=== PATIENT | male | born 1945 | race Caucasian/White ===

== ENCOUNTER 2017-12-16 12:04 | Emergency (ER) | payer MEDICARE, OTHER, SELFPAY ==
[2017-12-16 12:17] VITALS: BP 169/97; PULSE 57; RESP 16; TEMP 36.3; O2SAT 100
--- NOTE | 2017-12-16 12:18 | DI.RAD.S_ITS ---
PROCEDURE: XR SHOULDER RT MIN 2V INDICATIONS: fall TECHNIQUE: 2 views of the shoulder were acquired. COMPARISON: None. FINDINGS: Bones: Slight irregular is noted along the lateral cortex of the humeral head. No suspicious bony lesions. Visualized ribs appear intact. Moderate acromioclavicular degenerative narrowing. Soft tissues: No suspicious soft tissue calcifications. IMPRESSION: Slight cortical irregularity along the lateral humeral head. Chronicity is indeterminate. Recommend correlation of point tenderness. If concern for fracture persists, further imaging with CT/MR may be obtained. Dictated by: Tatianna Dickens M.D. on 12/16/2017 at 12:39 Approved by: Tatianna Dickens M.D. on 12/16/2017 at 12:41
--- NOTE | 2017-12-16 12:24 | ED.FALL ---
HPI - Fall <CLAUDIA Mohan - Last Filed: 12/16/17 22:23> General Chief Complaint: Fall Stated Complaint: fell, feels like Rt shoulder popped out of socked Time Seen by Provider: 12/16/17 12:22 Source: patient Mode of arrival: ambulatory Limitations: no limitations History of Present Illness HPI Narrative: 72-year-old male with history of hypertension and is a nonsmoker here for complaint of pain into his right shoulder after ground level fall earlier today. He states that he slipped off a curb causing him to fall on the lateral aspect of his right shoulder. He states he felt a pop in his shoulder and thought he may have dislocated the shoulder. Reports increased pain with movement of the right shoulder area. He denies hitting his head. No neck pain no chest pain. He denies any other injuries. MD complaint: fall Related Data Home Medications Medication Instructions Recorded Confirmed aspirin 81 mg PO DAILY #0 01/23/11 12/16/17 hydrocodone-acetaminophen [[place]] 1 tab PO Q4-6H PRN 12/16/17 12/16/17 Previous Rx's Medication Instructions Recorded alfuzosin [Uroxatral] 10 mg PO Q DAY #90 01/29/11 finasteride 5 mg PO QDAY #30 05/16/12 omeprazole 20 mg PO QDAY #90 cap 09/18/16 simvastatin 20 mg PO Q DAY #90 tab 07/05/17 atenolol 50 mg tablet 50 mg PO QDAY #90 tab 10/19/17 Allergies Allergy/AdvReac Type Severity Reaction Status Date / Time No Known Drug Allergies Allergy Verified 12/16/17 12:17 Review of Systems <CLAUDIA Mohan - Last Filed: 12/16/17 22:23> Constitutional Denies chills, Denies fever(s), Denies lethargy and Denies weakness Eyes Denies change in vision, Denies eye discharge, Denies irritation and Denies loss of vision ENT Ears, Nose, Mouth, and Throat: Denies change in voice, Denies neck pain and Denies sore throat Cardiovascular Denies chest pain, Denies irregular heart rhythm, Denies lightheadedness, Denies palpitations, Denies dyspnea, Denies dyspnea on exertion and Denies orthopnea Respiratory Denies cough, Denies dyspnea, Denies dyspnea on exertion and Denies wheezing Gastrointestinal Gastrointestinal: Denies abdominal pain, Denies change in bowel habits, Denies diarrhea, Denies nausea and Denies vomiting Genitourinary Denies hematuria, Denies flank pain, Denies urinary incontinence and Denies urinary urgency Musculoskeletal Denies neck pain Comments: Pain into right shoulder after ground level fall Integumentary/Breasts Denies pruritus, Denies erythema, Denies rash and Denies wounds Neurologic Denies confusion, Denies loss of vision and Denies weakness Psychiatric Denies anxiety, Denies confusion, Denies depression, Denies homicidal ideation and Denies suicidal ideation Endocrine Denies palpitations Allergic/Immunologic Denies wheezing Exam <CLAUDIA Mohan - Last Filed: 12/16/17 22:23> Initial Vital Signs Initial Vital Signs: Vital Signs Temperature 97.3 F L 12/16/17 12:17 Pulse Rate 57 L 12/16/17 12:17 Respiratory Rate 16 12/16/17 12:17 Blood Pressure 169/97 H 12/16/17 12:17 Pulse Oximetry 100 12/16/17 12:17 Const General: cooperative and well developed Nutritional Appearance: well nourished Orientation: alert, awake, oriented x3 and not confused HENKS Mouth: oral mucosae normal and oropharynx normal Eyes Conjunctivae: conjunctivae normal Sclera: sclerae normal Pupils: PERRL EOM: EOM intact bilaterally Neck Neck: normal visual inspection, trachea midline, No lymphadenopathy, No midline deformity and No JVD Lymphatic: No lymphedema Chest Chest: normal inspection of the chest Resp Effort & Inspection: normal respiratory effort, able to speak in complete sentences, no respiratory distress and no use of accessory muscles Auscultation: clear to auscultation bilaterally, no rales, no rhonchi and no wheezes Cardio Rate: regular rate Rhythm: regular rhythm Heart Sounds: no click, no gallops, no murmurs and no rubs Pulses: normal peripheral pulses Skin General: no rashes or lesions noted, No jaundice and No petechiae Neuro General: alert, oriented x3, gait normal and no focal motor deficits Speech: speech normal Extrem Other: tenderness on palpation to the right lateral humeral head area. no signs of trauma. No swelling no ecchymosis. No open lesions. No deformities. Distal sensation is intact. Distal pulses are intact. Distal range of motion is intact. Pain with active flexion of the right shoulder. <Bret Molina DO - Last Filed: 12/17/17 07:34> Initial Vital Signs Initial Vital Signs: Vital Signs Temperature 97.3 F L 12/16/17 12:17 Pulse Rate 57 L 12/16/17 12:17 Respiratory Rate 16 12/16/17 12:17 Blood Pressure 169/97 H 12/16/17 12:17 Pulse Oximetry 100 12/16/17 12:17 Course <CLAUDIA Mohan - Last Filed: 12/16/17 22:23> Orders Ordered: ED Orders 12/16/17 12:18 XR shoulder RT min 2V Stat 12/16/17 12:47 CT UE RT wo con Stat Vital Signs - 8 hr 12/16/17 12:17 Temperature 97.3 F L Pulse Rate 57 L Respiratory Rate 16 Blood Pressure 169/97 H Pulse Oximetry 100 <Bret Molina DO - Last Filed: 12/17/17 07:34> Orders Ordered: ED Orders 12/16/17 12:18 XR shoulder RT min 2V Stat 12/16/17 12:47 CT UE RT wo con Stat Vital Signs - 8 hr 12/16/17 12:17 Temperature 97.3 F L Pulse Rate 57 L Respiratory Rate 16 Blood Pressure 169/97 H Pulse Oximetry 100 MDM - Fall <CLAUDIA Mohan - Last Filed: 12/16/17 22:23> Imaging Data shoulder xray: Radiologist's impression: [address] [address] XRay Report Signed Patient: Lopez Hardwick FMR#: [id number] : 7Acct:[id number] Age/Sex: 72 / MDate of Service: 12/16/17 Loc: ED Accession Number: [id number] Procedure: XR shoulder RT min 2V Ordering Provider: Bret Molina D.O. PROCEDURE: XR SHOULDER RT MIN 2V INDICATIONS: fall TECHNIQUE: 2 views of the shoulder were acquired. COMPARISON: None. FINDINGS: Bones: Slight irregular is noted along the lateral cortex of the humeral head. No suspicious bony lesions. Visualized ribs appear intact. Moderate acromioclavicular degenerative narrowing. Soft tissues: No suspicious soft tissue calcifications. IMPRESSION: Slight cortical irregularity along the lateral humeral head. Chronicity is indeterminate. Recommend correlation of point tenderness. If concern for fracture persists, further imaging with CT/MR may be obtained. Dictated by: Tatianna Dickens M.D. on 12/16/2017 at 12:39 Approved by: Tatianna Dickens M.D. on 12/16/2017 at 12:[address] : Radiologist's impression: [address] [address] [address] Scan Report Signed Patient: Lopez Hardwick FMR#: [id number] : 7Acct:[id number] Age/Sex: 72 / MDate of Service: 12/16/17 Loc: ED Accession Number: [id number] Procedure: CT UE RT wo con Ordering Provider: Charbel Paz PROCEDURE: CT UE RT WO CON INDICATIONS: ground level fall on right shoulder. Right shoulder pain TECHNIQUE: Noncontrast 1-1.5 mm thick sections acquired from the acromioclavicular joint to the inferior scapula, with coronal and sagittal reformatting. COMPARISON: [facility], RG, XR CXR 2 VIEW, 03/10/2006, 12:31. [facility], CR, XR SHOULDER RT MIN 2V, 12/16/2017, 12:17. FINDINGS: Image quality: Excellent. Bones: Minimally displaced fracture of the greater tuberosity is seen. Small cortical fracture involving the inferior glenoid is also noted. Anatomic alignment at the glenohumeral and acromioclavicular joints. Soft tissues: Visualized cutaneous soft tissues and muscles grossly unremarkable. Visualized portions of the left lung are grossly unremarkable. No pneumothorax. IMPRESSION: Minimally displaced fracture involving the greater tuberosity. Small cortical fracture involving the anterior-inferior glenoid (Bankart fracture). No definite Hill-Sachs fracture deformity seen. Dictated by: Brent Lopes M.D. on 12/16/2017 at 13:17 Approved by: Brent Lopes M.D. on 12/16/2017 at 13:23 [facility] Narrative Medical decision making narrative: x-ray of the right shoulder was obtained and showed some irregularities to the lateral humeral head with differential between degenerative changes or acute fracture. CT of the right upper extremity was obtained and does show nondisplaced fracture to the greater tuberosity of the humerus and also a small inferior glenoid fracture. discussed case with Orthopedics who recommends placing patient in a sling and follow up with Orthopedics next week. [id number] Tylenol or Motrin as needed for any discomfort. Rest area. Call Orthopedics To schedule follow-up appointment next week. Small amount of [place] is prescribed for breakthrough pain. For any worsening symptoms return to the emergency room. Discharge Plan Departure Patient Disposition: Home Clinical Impression: Closed right humeral fracture, Glenoid fracture of shoulder Discharge Date/Time: 12/16/17 14:11 Interventions: ED Discharge Assessment Last Done: 12/16/17 14:09 Instructions: DI for Shoulder Fracture Activity Restrictions/Additional Instructions: CT of the right shoulder shows a fracture to greater tuberosity fracture to the right humerus and also a small fracture to the glenoid. follow up with Orthopedics next week. Call the office to schedule follow-up appointment. Use [id number] Tylenol or Motrin as needed for discomfort. Small amount of [place] is prescribed for breakthrough pain not covered by the Tylenol or Motrin. No driving while on the [place]. You are placed in a sling for comfort and support use as directed. for any worsening symptoms return to the emergency room. Prescriptions: No Action aspirin 81 mg Tablet,Delayed Release (Dr/Ec) 81 mg PO DAILY Qty: 0 RF: 0 alfuzosin [Uroxatral] 10 MG tablet extended release 24 hr 10 mg PO Q DAY Qty: 90 RF: 3 finasteride 5 MG tablet 5 mg PO QDAY Qty: 30 RF: 0 omeprazole 20 MG capsule,delayed release(DR/EC) 20 mg PO QDAY Qty: 90 RF: 1 simvastatin 20 mg tablet 20 mg PO Q DAY Qty: 90 RF: 1 atenolol 50 mg tablet 50 mg PO QDAY Qty: 90 RF: 2 hydrocodone-acetaminophen [[place]] 5-325 mg Tablet 1 tab PO Q4-6H PRN (Reason: pain) RF: 0 Referrals: Flory Teague MD [Physician] - Saw Stevens MD [Primary Care Provider] - <Bret Molina DO - Last Filed: 12/17/17 07:34> [facility] Att[facility]: I was immediately available in the department for consultation. Documentation has been reviewed. I agree with assessment and plan.
--- NOTE | 2017-12-16 12:47 | DI.CT.S_ITS ---
PROCEDURE: CT UE RT WO CON INDICATIONS: ground level fall on right shoulder. Right shoulder pain TECHNIQUE: Noncontrast 1-1.5 mm thick sections acquired from the acromioclavicular joint to the inferior scapula, with coronal and sagittal reformatting. COMPARISON: [facility], RG, XR CXR 2 VIEW, 03/10/2006, 12:31. [facility], CR, XR SHOULDER RT MIN 2V, 12/16/2017, 12:17. FINDINGS: Image quality: Excellent. Bones: Minimally displaced fracture of the greater tuberosity is seen. Small cortical fracture involving the inferior glenoid is also noted. Anatomic alignment at the glenohumeral and acromioclavicular joints. Soft tissues: Visualized cutaneous soft tissues and muscles grossly unremarkable. Visualized portions of the left lung are grossly unremarkable. No pneumothorax. IMPRESSION: Minimally displaced fracture involving the greater tuberosity. Small cortical fracture involving the anterior-inferior glenoid (Bankart fracture). No definite Hill-Sachs fracture deformity seen. Dictated by: Brent Lopes M.D. on 12/16/2017 at 13:17 Approved by: Brent Lopes M.D. on 12/16/2017 at 13:23
--- NOTE | 2017-12-16 13:23 | ED_ITS ---
HPI - Fall <CLAUDIA Mohan - Last Filed: 12/16/17 22:23> General Chief Complaint: Fall Stated Complaint: fell, feels like Rt shoulder popped out of socked Time Seen by Provider: 12/16/17 12:22 Source: patient Mode of arrival: ambulatory Limitations: no limitations History of Present Illness HPI Narrative: 72-year-old male with history of hypertension and is a nonsmoker here for complaint of pain into his right shoulder after ground level fall earlier today. He states that he slipped off a curb causing him to fall on the lateral aspect of his right shoulder. He states he felt a pop in his shoulder and thought he may have dislocated the shoulder. Reports increased pain with movement of the right shoulder area. He denies hitting his head. No neck pain no chest pain. He denies any other injuries. MD complaint: fall Related Data Home Medications Medication Instructions Recorded Confirmed aspirin 81 mg PO DAILY #0 01/23/11 12/16/17 hydrocodone-acetaminophen [[place]] 1 tab PO Q4-6H PRN 12/16/17 12/16/17 Previous Rx's Medication Instructions Recorded alfuzosin [Uroxatral] 10 mg PO Q DAY #90 01/29/11 finasteride 5 mg PO QDAY #30 05/16/12 omeprazole 20 mg PO QDAY #90 cap 09/18/16 simvastatin 20 mg PO Q DAY #90 tab 07/05/17 atenolol 50 mg tablet 50 mg PO QDAY #90 tab 10/19/17 Allergies Allergy/AdvReac Type Severity Reaction Status Date / Time No Known Drug Allergies Allergy Verified 12/16/17 12:17 Review of Systems <CLAUDIA Mohan - Last Filed: 12/16/17 22:23> Constitutional Denies chills, Denies fever(s), Denies lethargy and Denies weakness Eyes Denies change in vision, Denies eye discharge, Denies irritation and Denies loss of vision ENT Ears, Nose, Mouth, and Throat: Denies change in voice, Denies neck pain and Denies sore throat Cardiovascular Denies chest pain, Denies irregular heart rhythm, Denies lightheadedness, Denies palpitations, Denies dyspnea, Denies dyspnea on exertion and Denies orthopnea Respiratory Denies cough, Denies dyspnea, Denies dyspnea on exertion and Denies wheezing Gastrointestinal Gastrointestinal: Denies abdominal pain, Denies change in bowel habits, Denies diarrhea, Denies nausea and Denies vomiting Genitourinary Denies hematuria, Denies flank pain, Denies urinary incontinence and Denies urinary urgency Musculoskeletal Denies neck pain Comments: Pain into right shoulder after ground level fall Integumentary/Breasts Denies pruritus, Denies erythema, Denies rash and Denies wounds Neurologic Denies confusion, Denies loss of vision and Denies weakness Psychiatric Denies anxiety, Denies confusion, Denies depression, Denies homicidal ideation and Denies suicidal ideation Endocrine Denies palpitations Allergic/Immunologic Denies wheezing Exam <CLAUDIA Mohan - Last Filed: 12/16/17 22:23> Initial Vital Signs Initial Vital Signs: Vital Signs Temperature 97.3 F L 12/16/17 12:17 Pulse Rate 57 L 12/16/17 12:17 Respiratory Rate 16 12/16/17 12:17 Blood Pressure 169/97 H 12/16/17 12:17 Pulse Oximetry 100 12/16/17 12:17 Const General: cooperative and well developed Nutritional Appearance: well nourished Orientation: alert, awake, oriented x3 and not confused HENIA Mouth: oral mucosae normal and oropharynx normal Eyes Conjunctivae: conjunctivae normal Sclera: sclerae normal Pupils: PERRL EOM: EOM intact bilaterally Neck Neck: normal visual inspection, trachea midline, No lymphadenopathy, No midline deformity and No JVD Lymphatic: No lymphedema Chest Chest: normal inspection of the chest Resp Effort & Inspection: normal respiratory effort, able to speak in complete sentences, no respiratory distress and no use of accessory muscles Auscultation: clear to auscultation bilaterally, no rales, no rhonchi and no wheezes Cardio Rate: regular rate Rhythm: regular rhythm Heart Sounds: no click, no gallops, no murmurs and no rubs Pulses: normal peripheral pulses Skin General: no rashes or lesions noted, No jaundice and No petechiae Neuro General: alert, oriented x3, gait normal and no focal motor deficits Speech: speech normal Extrem Other: tenderness on palpation to the right lateral humeral head area. no signs of trauma. No swelling no ecchymosis. No open lesions. No deformities. Distal sensation is intact. Distal pulses are intact. Distal range of motion is intact. Pain with active flexion of the right shoulder. <Bret Molina DO - Last Filed: 12/17/17 07:34> Initial Vital Signs Initial Vital Signs: Vital Signs Temperature 97.3 F L 12/16/17 12:17 Pulse Rate 57 L 12/16/17 12:17 Respiratory Rate 16 12/16/17 12:17 Blood Pressure 169/97 H 12/16/17 12:17 Pulse Oximetry 100 12/16/17 12:17 Course <CLADUIA Mohan - Last Filed: 12/16/17 22:23> Orders Ordered: ED Orders 12/16/17 12:18 XR shoulder RT min 2V Stat 12/16/17 12:47 CT UE RT wo con Stat Vital Signs - 8 hr 12/16/17 12:17 Temperature 97.3 F L Pulse Rate 57 L Respiratory Rate 16 Blood Pressure 169/97 H Pulse Oximetry 100 <Bret Molina DO - Last Filed: 12/17/17 07:34> Orders Ordered: ED Orders 12/16/17 12:18 XR shoulder RT min 2V Stat 12/16/17 12:47 CT UE RT wo con Stat Vital Signs - 8 hr 12/16/17 12:17 Temperature 97.3 F L Pulse Rate 57 L Respiratory Rate 16 Blood Pressure 169/97 H Pulse Oximetry 100 MDM - Fall <CLAUDIA Mohan - Last Filed: 12/16/17 22:23> Imaging Data shoulder xray: Radiologist's impression: [address] [address] XRay Report Signed Patient: Lopez Hardwick FMR#: [id number] : 7Acct:[id number] Age/Sex: 72 / MDate of Service: 12/16/17 Loc: ED Accession Number: [id number] Procedure: XR shoulder RT min 2V Ordering Provider: Bret Molina D.O. PROCEDURE: XR SHOULDER RT MIN 2V INDICATIONS: fall TECHNIQUE: 2 views of the shoulder were acquired. COMPARISON: None. FINDINGS: Bones: Slight irregular is noted along the lateral cortex of the humeral head. No suspicious bony lesions. Visualized ribs appear intact. Moderate acromioclavicular degenerative narrowing. Soft tissues: No suspicious soft tissue calcifications. IMPRESSION: Slight cortical irregularity along the lateral humeral head. Chronicity is indeterminate. Recommend correlation of point tenderness. If concern for fracture persists, further imaging with CT/MR may be obtained. Dictated by: Tatianna Dickens M.D. on 12/16/2017 at 12:39 Approved by: Tatianna Dickens M.D. on 12/16/2017 at 12:[address] : Radiologist's impression: [address] [address] [address] Scan Report Signed Patient: Lopez Hardwick FMR#: [id number] : 7Acct:[id number] Age/Sex: 72 / MDate of Service: 12/16/17 Loc: ED Accession Number: [id number] Procedure: CT UE RT wo con Ordering Provider: Charbel Paz PROCEDURE: CT UE RT WO CON INDICATIONS: ground level fall on right shoulder. Right shoulder pain TECHNIQUE: Noncontrast 1-1.5 mm thick sections acquired from the acromioclavicular joint to the inferior scapula, with coronal and sagittal reformatting. COMPARISON: [facility], RG, XR CXR 2 VIEW, 03/10/2006, 12:31. [facility], CR, XR SHOULDER RT MIN 2V, 12/16/2017, 12:17. FINDINGS: Image quality: Excellent. Bones: Minimally displaced fracture of the greater tuberosity is seen. Small cortical fracture involving the inferior glenoid is also noted. Anatomic alignment at the glenohumeral and acromioclavicular joints. Soft tissues: Visualized cutaneous soft tissues and muscles grossly unremarkable. Visualized portions of the left lung are grossly unremarkable. No pneumothorax. IMPRESSION: Minimally displaced fracture involving the greater tuberosity. Small cortical fracture involving the anterior-inferior glenoid (Bankart fracture). No definite Hill-Sachs fracture deformity seen. Dictated by: Brent Lopes M.D. on 12/16/2017 at 13:17 Approved by: Brent Lopes M.D. on 12/16/2017 at 13:23 [facility] Narrative Medical decision making narrative: x-ray of the right shoulder was obtained and showed some irregularities to the lateral humeral head with differential between degenerative changes or acute fracture. CT of the right upper extremity was obtained and does show nondisplaced fracture to the greater tuberosity of the humerus and also a small inferior glenoid fracture. discussed case with Orthopedics who recommends placing patient in a sling and follow up with Orthopedics next week. [id number] Tylenol or Motrin as needed for any discomfort. Rest area. Call Orthopedics To schedule follow- up appointment next week. Small amount of Tionesta is prescribed for breakthrough pain. For any worsening symptoms return to the emergency room. Discharge Plan Departure Patient Disposition: Home Clinical Impression: Closed right humeral fracture, Glenoid fracture of shoulder Discharge Date/Time: 12/16/17 14:11 Interventions: ED Discharge Assessment Last Done: 12/16/17 14:09 Instructions: DI for Shoulder Fracture Activity Restrictions/Additional Instructions: CT of the right shoulder shows a fracture to greater tuberosity fracture to the right humerus and also a small fracture to the glenoid. follow up with Orthopedics next week. Call the office to schedule follow-up appointment. Use [id number] Tylenol or Motrin as needed for discomfort. Small amount of Tionesta is prescribed for breakthrough pain not covered by the Tylenol or Motrin. No driving while on the [place]. You are placed in a sling for comfort and support use as directed. for any worsening symptoms return to the emergency room. Prescriptions: No Action aspirin 81 mg Tablet,Delayed Release (Dr/Ec) 81 mg PO DAILY Qty: 0 RF: 0 alfuzosin [Uroxatral] 10 MG tablet extended release 24 hr 10 mg PO Q DAY Qty: 90 RF: 3 finasteride 5 MG tablet 5 mg PO QDAY Qty: 30 RF: 0 omeprazole 20 MG capsule,delayed release(DR/EC) 20 mg PO QDAY Qty: 90 RF: 1 simvastatin 20 mg tablet 20 mg PO Q DAY Qty: 90 RF: 1 atenolol 50 mg tablet 50 mg PO QDAY Qty: 90 RF: 2 hydrocodone-acetaminophen [Tionesta] 5-325 mg Tablet 1 tab PO Q4-6H PRN (Reason: pain) RF: 0 Referrals: Flory Teague MD [Physician] - Saw Stevens MD [Primary Care Provider] - <Bret Molina DO - Last Filed: 12/17/17 07:34> [facility] Att[facility]: I was immediately available in the department for consultation. Documentation has been reviewed. I agree with assessment and plan.
[2017-12-16 14:09] VITALS: BP 110/94; PULSE 55; RESP 20; O2SAT 99
== END 2017-12-16 14:11 | disposition home or self-care (01) ==
PROVIDERS: Emergency Provider Nurse Practitioner Family; PCP Family Medicine
DX: S42.214A Unspecified nondisplaced fracture of surgical neck of right humerus, initial encounter for closed fracture (principal); S42.144A Nondisplaced fracture of glenoid cavity of scapula, right shoulder, initial encounter for closed fracture; W01.0XXA Fall on same level from slipping, tripping and stumbling without subsequent striking against object, initial encounter
CPT/HCPCS: 73030; 73200; 99282; 99283

== ENCOUNTER → 2018-01-26 08:32 | Outpatient (CLI) | payer MEDICARE, OTHER, SELFPAY ==
[2018-01-26 09:32] LABS: Add Manual Diff / Slide Review NO; Basophils Percent Auto 0.4 % (0-2); Hematocrit 42.2 % (41-53); Hemoglobin 14.8 g/dL (13.5-17.5); Lymphocytes Percent Auto 26.4 % (25-40); Mean Corpuscular HGB Conc 35.2 % (30-36); Mean Corpuscular Hemoglobin 32.3 PG (26-34); Mean Corpuscular Volume 91.9 fL (80-100); Monocytes Percent Auto 6.6 % (3-14); Neutrophils Absolute Auto 4100 /uL (3000-5900); Neutrophils Percent Auto 65.6 % (50-75); Platelet Count 220 X10^3/uL (150-400); Red Blood Cell Count 4.59 X10^6/uL (4.5-5.9); Red Cell Distribution Width 13.3 % (11.6-14.8); White Blood Cell Count 6.2 X10^3/uL (4.5-11.0)
[2018-01-26 09:52] LABS: Alanine Aminotransferase 48 IU/L (21-72); Albumin 4.5 g/dL (3.5-5.0); Albumin Globulin Ratio 1.6 (1.0-2.8); Alkaline Phosphatase 36 U/L (38-126); Aspartate Aminotransferase 30 IU/L (17-59); Bilirubin Total 0.7 mg/dL (0.2-1.3); Blood Urea Nitrogen 23 mg/dL (9-20); Calcium 9.4 mg/dL (8.4-10.2); Carbon Dioxide 24 mmol/L (22-32); Chloride 108 mmol/L (98-107); Cholesterol 150 mg/dL (140-199); Estimated Glomerular Filt Rate > 60.0 mL/min (>60); Globulin 2.8 g/dL (1.7-4.1); Glucose 110 mg/dL (80-110); HDL Cholesterol 41 mg/dL (40-60); HEMOLYSIS < 15 (0-50); LDL Cholesterol Calculated 92 mg/dL (<100); Potassium 4.6 mmol/L (3.4-5.1); Sodium 146 mmol/L (137-145); Total Protein 7.3 g/dL (6.3-8.2); Triglycerides 84 mg/dL (35-150)
[2018-01-26 09:58] LABS: Hemoglobin A1C% w Est Avg Glu 5.2 % (4.0-6.0)
[2018-01-26 10:20] LABS: Prostate Specific Antigen Scrn 2.38 ng/mL (0.1-4.0); Thyroid Stimulating Hormone 1.45 uIU/mL (0.47-4.68)
[2018-01-26 10:38] LABS: Creatinine Urine Random 80.6 mg/dL
[2018-01-26 10:43] LABS: Microalbumin Urine Random 2.1 mg/dL (0-1.6)
== END ==
PROVIDERS: Family Provider Family Medicine; PCP Family Medicine; Visit Provider Family Medicine
DX: E78.2 Mixed hyperlipidemia (principal); I10 Essential (primary) hypertension; Z68.30 Body mass index [BMI] 30.0-30.9, adult
CPT/HCPCS: 36415; 80053; 80061; 82043; 82570; 83036; 84443; 85025; G0103

== ENCOUNTER → 2018-03-15 12:55 | Outpatient (CLI) | payer MEDICARE, OTHER, SELFPAY ==
[2018-03-15 14:40] LABS: Add Manual Diff / Slide Review NO; Basophils Absolute Auto 0 /uL (0-100); Basophils Percent Auto 0.4 % (0-2); Eosinophils Absolute Auto 100 /uL (0-450); Eosinophils Percent Auto 0.9 % (2-4); Hematocrit 44.9 % (41-53); Hemoglobin 15.3 g/dL (13.5-17.5); Lymphocytes Absolute Auto 2500 /uL (1100-4500); Lymphocytes Percent Auto 26.7 % (25-40); Mean Corpuscular Hemoglobin 31.8 PG (26-34); Mean Corpuscular Volume 93.5 fL (80-100); Monocytes Absolute Auto 700 /uL (0-900); Monocytes Percent Auto 7.3 % (3-14); Neutrophils Absolute Auto 6100 /uL (1500-7000); Neutrophils Percent Auto 64.7 % (50-75); Platelet Count 259 X10^3/uL (150-400); Red Blood Cell Count 4.81 X10^6/uL (4.5-5.9); Red Cell Distribution Width 13.4 % (11.6-14.8); White Blood Cell Count 9.5 X10^3/uL (4.5-11.0)
[2018-03-15 15:04] LABS: Alanine Aminotransferase 24 IU/L (21-72); Albumin 4.5 g/dL (3.5-5.0); Albumin Globulin Ratio 1.6 (1.0-2.8); Alkaline Phosphatase 55 U/L (38-126); Amylase 72 U/L (30-110); Aspartate Aminotransferase 16 IU/L (17-59); Bilirubin Total 0.8 mg/dL (0.2-1.3); Blood Urea Nitrogen 18 mg/dL (9-20); Calcium 9.8 mg/dL (8.4-10.2); Carbon Dioxide 24 mmol/L (22-32); Chloride 100 mmol/L (98-107); Estimated Glomerular Filt Rate > 60.0 mL/min (>60); Globulin 2.8 g/dL (1.7-4.1); Glucose 84 mg/dL (80-110); HEMOLYSIS < 15 (0-50); Lipase 278 U/L (23-300); Potassium 4.3 mmol/L (3.4-5.1); Sodium 139 mmol/L (137-145); Total Protein 7.3 g/dL (6.3-8.2)
== END ==
PROVIDERS: PCP Family Medicine; Visit Provider Family Medicine
DX: R11.10 Vomiting, unspecified (principal)
CPT/HCPCS: 36415; 80053; 82150; 83013; 83690; 85025

== ENCOUNTER → 2018-03-18 09:01 | Outpatient (CLI) | payer MEDICARE, OTHER, SELFPAY ==
--- NOTE | 2018-03-18 09:03 | DI.US.S_ITS ---
PROCEDURE: US ABDOMEN COMPLETE INDICATIONS: VOMITING TECHNIQUE: Real-time scanning was performed of the abdominal and retroperitoneal organs, with image documentation. COMPARISON: None. FINDINGS: Liver: Liver is normal in size and homogeneous in echotexture. Gallbladder: The gallbladder is within normal limits without gallbladder wall inflammation or cholelithiasis. Biliary ducts: Intrahepatic bile ducts are non-dilated. Extrahepatic bile duct caliber measures 5 mm. Normal is 6-7 mm or less in diameter, or 10 mm or less post-cholecystectomy. Pancreas: Visualized portions of the pancreas are sonographically normal. Spleen: Spleen is normal in size and homogeneous in echotexture. Kidneys: Kidneys are normal in size and echotexture. Right kidney measures 10.4 cm long; left kidney measures 12.7 cm long. No hydronephrosis or nephrolithiasis. No solid masses. Aorta: Visualized aorta is normal in caliber at less than 3 cm. Iliacs: Obscured by bowel gas. IVC: Intrahepatic inferior vena cava is patent. Miscellaneous: No free abdominal fluid. IMPRESSION: Unremarkable abdominal ultrasound. No cholelithiasis or evidence of acute cholecystitis. Dictated by: Carlos Hagen M.D. on 03/18/2018 at 9:46 Approved by: Carlos Hagen M.D. on 03/18/2018 at 9:47
== END ==
PROVIDERS: Family Provider Family Medicine; PCP Family Medicine; Visit Provider Family Medicine
DX: R11.10 Vomiting, unspecified (principal)
CPT/HCPCS: 76700; 87400

== ENCOUNTER → 2018-03-18 10:22 | Outpatient (CLI) | payer MEDICARE, OTHER, SELFPAY ==
[2018-03-18 11:03] LABS: Influenza A and B by PCR Rapid Negative (Negative)
== END ==
PROVIDERS: Family Provider Family Medicine; PCP Family Medicine; Visit Provider Family Medicine
DX: R50.9 Fever, unspecified (principal)
CPT/HCPCS: 87400

== ENCOUNTER → 2018-03-29 09:38 | Outpatient (CLI) | payer MEDICARE, OTHER, SELFPAY ==
--- NOTE | 2018-03-29 09:39 | DI.NM.S_ITS ---
PROCEDURE: NM HIDA WITH CCK PHARMACEUTICAL: 4.5 mCi Tc-99m mebrofenin IV; 1.0 mcg CCK IV. INDICATIONS: RUQ pain, vomiting TECHNIQUE: Following intravenous administration of Tc-99m mebrofenin, sequential anterior abdominal images were obtained. To evaluate the contractile response of the gallbladder in response to Cholecystokinin (CCK), sincalide (0.02 ?g/kg) was administered by slow intravenous infusion approximately 60 minutes after the administration of the radiopharmaceutical. Sequential imaging was continued for 30 minutes after the start of CCK infusion. Gallbladder ejection fraction was calculated. COMPARISON: None. FINDINGS: Biliary scan: There is normal tracer uptake and excretion by the liver. There is normal visualization of the intrahepatic ducts, common bile duct, and gallbladder. There is normal tracer transit into the duodenum. CCK stimulation: There is normal contractile response of the gallbladder to CCK infusion. The calculated gallbladder ejection fraction is 81%; normal values are above 35%. It has been shown that any patient abdominal pain after CCK administration is related to the rate of CCK injection, rather than to any underlying gallbladder disease (Clinical Nuclear Medicine 2012; 37: 63-70. Journal of Nuclear Medicine 2014; 55: 1-9). IMPRESSION: Normal hepatobiliary imaging study. Dictated by: Mervin Kirk M.D. on 03/29/2018 at 13:12 Approved by: Mervin Kirk M.D. on 03/29/2018 at 13:14
== END ==
PROVIDERS: Family Provider Family Medicine; PCP Family Medicine; Visit Provider Surgery
DX: R10.11 Right upper quadrant pain (principal); R11.10 Vomiting, unspecified
CPT/HCPCS: 78227; A9537; J2805

== ENCOUNTER → 2018-04-14 09:07 | Outpatient (CLI) | payer MEDICARE, OTHER, SELFPAY ==
--- NOTE | 2018-04-14 | DI.MRI.S_ITS ---
PROCEDURE: MR SHOULDER RT WO CON INDICATIONS: INSUFFICIENCY OF RIGHT ROTATOR CUFF TECHNIQUE: Noncontrast oblique coronal T2 fast spin echo with fat saturation, oblique sagittal T1 spin echo and T2 fast spin echo with fat saturation, axial T1 spin echo and T2 fast spin echo with fat saturation through the shoulder. COMPARISON: [facility], CR, XR SHOULDER 2+ VIEWS RIGHT, 03/02/2018, 9:16. [facility], CR, XR SHOULDER 2+ VIEWS RIGHT, 04/07/2018, 9:16. FINDINGS: Image quality: Significant motion artifacts are present. Rotator cuff: There is full-thickness tear of the supraspinatus tendon with tendon retraction to the musculotendinous junction. There are also full thickness tears of the infraspinatus and subscapularis tendons without tendon retraction. Sagittal images demonstrate supraspinatus muscle atrophy. Bones and bursae: No bone marrow contusions or fractures. Moderate acromioclavicular and severe glenohumeral joint degeneration. The acromion demonstrates conventional anatomy, without an os acromiale. No pathologic subacromial-subdeltoid or subcoracoid bursal fluid is present. Capsule and soft tissues: There is degenerative fraying of the glenoid labrum. In the absence of intra-articular contrast, the glenohumeral ligaments appear intact. There is degenerative fraying of the glenoid labrum. There is subluxation of long head of the biceps tendon as it if the bicipital groove related to a subscapularis tear. The rotator interval appears normal, without fibrosis. The coracohumeral ligament is normal in thickness. There is a small to moderate joint effusion. IMPRESSION: 1. Extensive rotator cuff tendon tear. The supraspinatus tendon is completely torn and retracted to the musculotendinous junction. Full thickness tears are also present in the infraspinatus and subscapularis tendons without tendon retraction. There is supraspinatus muscle atrophy. 2. Moderate acromioclavicular and severe glenohumeral joint degeneration. 3. Degenerative fraying of the glenoid labrum. 4. Small to moderate joint effusion. Dictated by: Mervin Kirk M.D. on 04/14/2018 at 13:13 Approved by: Mervin Kirk M.D. on 04/14/2018 at 18:27
== END ==
PROVIDERS: PCP Family Medicine; Visit Provider Physician Assistant
DX: M75.121 Complete rotator cuff tear or rupture of right shoulder, not specified as traumatic (principal); M19.011 Primary osteoarthritis, right shoulder; M25.411 Effusion, right shoulder
CPT/HCPCS: 73221

== ENCOUNTER → 2019-02-16 14:03 | Outpatient (CLI) | payer MEDICARE, OTHER, SELFPAY ==
[2019-02-16 16:14] LABS: Prostate Specific Antigen 2.79 ng/mL (0.10-4.00)
== END ==
PROVIDERS: PCP Family Medicine; Visit Provider Urology
DX: R97.20 Elevated prostate specific antigen [PSA] (principal)
CPT/HCPCS: 36415; 84153

== ENCOUNTER 2019-02-27 08:19 | Emergency (ER) | payer MEDICARE, OTHER, SELFPAY ==
[2019-02-27] VITALS (7 sets, daily range): BP systolic 198–207; BP diastolic 81–91; PULSE 45–55; RESP 13–24; TEMP 36.6; O2SAT 98–99
--- NOTE | 2019-02-27 08:53 | ED_ITS ---
HPI - Nausea/Vomiting/Diarrhea General Chief complaint: Nausea/Vomiting/Diarrhea Stated complaint: nausea,throwing up Time Seen by Provider: 02/27/19 08:43 Source: patient Mode of arrival: Ambulatory Limitations: no limitations History of Present Illness HPI Narrative: Patient is 74-year-old male who presents with nausea vomiting ongoing for the last 3 or 4 days. He has anti nausea medication at home which he did take this morning, he says he still feels nauseous but he is no longer throwing up. Initially he was throwing up about 7 or 8 times a day this morning he threw up about 4 times. He really has decreased oral intake. He denies any abdominal pain. He has no diarrhea he seems to be burping a lot. This happen to him once before almost a year ago. He has had some fevers sweats chills MD complaint: nausea and vomiting Onset (ago): day(s) (4) Description of Diarrhea: none Related Data Home Medications Medication Instructions Recorded Confirmed aspirin 81 mg PO DAILY #0 01/23/11 04/06/18 alfuzosin 10 mg PO DAILY 02/27/19 02/27/19 atenolol 50 mg PO BID 02/27/19 02/27/19 finasteride 5 mg PO DAILY 02/27/19 02/27/19 lisinopril 20 mg PO BID 02/27/19 02/27/19 omeprazole 20 mg PO DAILY 02/27/19 02/27/19 simvastatin 20 mg PO DAILY 02/27/19 02/27/19 Previous Rx's Medication Instructions Recorded promethazine 25 mg PO Q6H PRN #10 tab 02/27/19 Allergies Allergy/AdvReac Type Severity Reaction Status Date / Time No Known Drug Allergies Allergy Verified 03/24/18 11:04 Review of Systems Review of Systems Narrative: GENERAL: Denies chills, fatigue, malaise, fever, sweats, travel HEENT: Denies sinus pain, ear pain, sore throat, difficulty swallowing, neck pain RESPIRATORY: Denies dyspnea, cough, wheezing, hemoptysis, sputum. CARDIOVASCULAR: Denies chest pain, palpitations, orthopnea, edema GASTROINTESTINAL: See HPI : Denies dysuria, frequency, incontinence, hematuria, urinary retention, flank pain. MUSCULOSKELETAL: Denies weakness, joint pain, or bony pain SKIN: No rash, no erythema, no pruritus NEUROLOGIC: Denies weakness, dizziness, headache, numbness, change in speech, confusion PSYCHIATRIC: No concerning psychosocial issues. 12 point review of systems is negative except for those stated above and HPI Patient History Medical History Gastroesophageal reflux disease (Acute) History of right shoulder fracture (Acute) Hyperlipidemia (Acute) Hypertension (Acute) Surgical History History of colonoscopy (Acute) Family History Mother Cancer Social History marital status: household members: spouse Smoking Status: Former smoker alcohol intake: current Smoking Status: Former smoker alcohol intake frequency: 0-2 drinks per day Substance Use Type: marijuana Exam Initial Vital Signs Initial Vital Signs: Vital Signs Temperature 97.8 F 02/27/19 08:41 Pulse Rate 48 L 02/27/19 08:41 Respiratory Rate 13 02/27/19 08:41 Blood Pressure 198/90 H 02/27/19 08:41 Pulse Oximetry 98 02/27/19 08:41 GENERAL: Well-appearing, well-nourished and in no acute distress. HEENT: Head atraumatic,EOMI, pupils reactive, face symmetric CARDIOVASCULAR: Regular rate and rhythm without murmurs, rubs or gallops. RESPIRATORY: Breath sounds equal bilaterally, no wheezes rales or rhonchi. ABDOMEN: Soft, nontender. Normoactive bowel sounds all 4 quadrants. No guarding or rebound. EXTREMITIES: Normal range of motion, no clubbing or edema. Neurovascularly intact NEUROLOGICAL: Alert and oriented x4.Normal gait and speech. Cranial nerves II through XII grossly intact. SKIN: Warm, dry, no laceration, no petechiae, no rashes or lesions. Course Orders Ordered: ED Orders 02/27/19 09:02 Complete Blood Count AUTO DIFF Stat Comprehensive Metabolic Panel Stat Lipase Stat 02/27/19 09:20 Troponin & CK Cardiac Panel Stat 02/27/19 09:28 EKG-12 Lead Stat 02/27/19 09:35 Urine Microscopic Stat 02/27/19 10:28 CT abdomen pelvis w con Stat Discontinued Medications Atenolol (Tenormin) 50 mg PO NOW ONE Stop: 02/27/19 11:15 Last Admin: 02/27/19 11:24 Dose: 50 mg Documented by: KRYS Sodium Chloride (Normal Saline 0.9%) 1,000 mls @ 1,000 mls/hr IV CONT CARLOS Last Infusion: 02/27/19 10:29 Dose: 0 mls/hr Documented by: Admin: 02/27/19 09:13 Dose: 1,000 mls/hr Documented by: KYRS Sodium Chloride (Normal Saline 0.9%) 1,000 mls @ 1,000 mls/hr IV BOLUS ONE Stop: 02/27/19 11:27 Last Infusion: 02/27/19 11:52 Dose: 0 mls/hr Documented by: Admin: 02/27/19 10:30 Dose: 1,000 mls/hr Documented by: KRYS Lisinopril (Zestril) 20 mg PO NOW ONE Stop: 02/27/19 11:15 Last Admin: 02/27/19 11:25 Dose: 20 mg Documented by: KRYS Metoclopramide HCl (Reglan) 10 mg IV NOW ONE Stop: 02/27/19 10:29 Last Admin: 02/27/19 10:48 Dose: 10 mg Documented by: KRYS Ondansetron HCl (Zofran) 4 mg IV NOW ONE Stop: 02/27/19 09:05 Last Admin: 02/27/19 09:13 Dose: 4 mg Documented by: KRYS Pantoprazole Sodium (Protonix) 40 mg IV NOW ONE Stop: 02/27/19 09:05 Last Admin: 02/27/19 09:12 Dose: 40 mg Documented by: KRYS Vital Signs Vital signs: Vital Signs - 8 hr 02/27/19 08:41 02/27/19 09:21 02/27/19 09:39 Temperature 97.8 F Pulse Rate 48 L 45 L 45 L Respiratory Rate 13 22 24 Blood Pressure 198/90 H Blood Pressure [Left Arm] 203/81 H 202/81 H Pulse Oximetry 98 99 99 02/27/19 10:06 02/27/19 11:12 02/27/19 11:25 Temperature Pulse Rate 48 L 52 L 55 L Respiratory Rate 18 18 Blood Pressure 200/87 H Blood Pressure [Left Arm] 206/85 H 205/88 H Pulse Oximetry 99 99 02/27/19 11:51 Temperature Pulse Rate 50 L Respiratory Rate 18 Blood Pressure Blood Pressure [Left Arm] 207/91 H Pulse Oximetry 98 MDM - Nausea/Vomiting/Diarrhea Lab Data Attestation: I reviewed the patient's lab results. Result diagrams: 02/27/19 09:02 02/27/19 09:02 Labs: Lab Results 02/27/19 02/27/19 02/27/19 Range/Units 09:02 09:02 09:20 WBC 9.2 (4.5-11.0) X10^3/uL RBC 4.79 (4.5-5.9) X10^6/uL Hgb 15.7 (13.5-17.5) g/dL Hct 45.4 (41-53) % MCV 94.9 (80-100) fL MCH 32.8 (26-34) PG MCHC 34.5 (30-36) % RDW 12.8 (11.6-14.8) % Plt Count 212 (150-400) X10^3/uL Neut % (Auto) 87.7 H (50-75) % Lymph % (Auto) 10.0 L (25-40) % Johnson % (Auto) 1.8 L (3-14) % Eos % (Auto) 0.2 L (2-4) % Baso % (Auto) 0.3 (0-2) % Neut # (Auto) 8100 H (6724-5191) /uL Lymph # (Auto) 900 L (5077-8701) /uL Johnson # (Auto) 200 (0-900) /uL Eos # (Auto) 0 (0-450) /uL Baso # (Auto) 0 (0-100) /uL Sodium 142 (137-145) mmol/L Potassium 4.5 (3.4-5.1) mmol/L Chloride 105 (98-107) mmol/L Carbon Dioxide 29 (22-32) mmol/L BUN 24 H (9-20) mg/dL Creatinine 1.30 H (0.66-1.25) mg/dL Estimated GFR 54.3 L (>60) mL/min BUN/Creatinine Ratio 18.5 (6-22) Glucose 126 H (80-110) mg/dL Calcium 9.2 (8.4-10.2) mg/dL Total Bilirubin 0.7 (0.2-1.3) mg/dL AST 25 (17-59) IU/L ALT 24 (<50) IU/L Alkaline Phosphatase 40 (38-126) U/L Total Creatine Kinase 121 (55-170) U/L CK-MB (CK-2) 2.46 H (<2.37) ng/mL CK-MB (CK-2) Rel Index 2.0 (1.5-5.0) % Troponin I < 0.012 (0.01-0.034) ng/mL Total Protein 7.0 (6.3-8.2) g/dL Albumin 4.3 (3.5-5.0) g/dL Globulin 2.7 (1.7-4.1) g/dL Albumin/Globulin Ratio 1.6 (1.0-2.8) Lipase 30 (23-300) U/L Urine RBC (0-5/HPF) Urine WBC (0-5/HPF) Ur Squamous Epith Cells (0-5/HPF) Urine Bacteria (None) Urine Mucus (Negative) Ur Culture Indicated? 02/27/19 Range/Units 09:35 WBC (4.5-11.0) X10^3/uL RBC (4.5-5.9) X10^6/uL Hgb (13.5-17.5) g/dL Hct (41-53) % MCV (80-100) fL MCH (26-34) PG MCHC (30-36) % RDW (11.6-14.8) % Plt Count (150-400) X10^3/uL Neut % (Auto) (50-75) % Lymph % (Auto) (25-40) % Johnson % (Auto) (3-14) % Eos % (Auto) (2-4) % Baso % (Auto) (0-2) % Neut # (Auto) (0477-2195) /uL Lymph # (Auto) (5189-9323) /uL Johnson # (Auto) (0-900) /uL Eos # (Auto) (0-450) /uL Baso # (Auto) (0-100) /uL Sodium (137-145) mmol/L Potassium (3.4-5.1) mmol/L Chloride (98-107) mmol/L Carbon Dioxide (22-32) mmol/L BUN (9-20) mg/dL Creatinine (0.66-1.25) mg/dL Estimated GFR (>60) mL/min BUN/Creatinine Ratio (6-22) Glucose (80-110) mg/dL Calcium (8.4-10.2) mg/dL Total Bilirubin (0.2-1.3) mg/dL AST (17-59) IU/L ALT (<50) IU/L Alkaline Phosphatase (38-126) U/L Total Creatine Kinase (55-170) U/L CK-MB (CK-2) (<2.37) ng/mL CK-MB (CK-2) Rel Index (1.5-5.0) % Troponin I (0.01-0.034) ng/mL Total Protein (6.3-8.2) g/dL Albumin (3.5-5.0) g/dL Globulin (1.7-4.1) g/dL Albumin/Globulin Ratio (1.0-2.8) Lipase (23-300) U/L Urine RBC 5-10/hpf H (0-5/HPF) Urine WBC 1-5/hpf (0-5/HPF) Ur Squamous Epith Cells None seen (0-5/HPF) Urine Bacteria None seen (None) Urine Mucus 1+ H (Negative) Ur Culture Indicated? Cult not indicated Urine Dip Bedside Urine Glucose Negative Bedside Urine Bilirubin - Negative Bedside Urine Ketone +/- 5 Urine Specific [place] 1.025 Bedside Urine Occult Blood ++ Bedside Urine pH 6.0 Bedside Urine Protein + 30 Bedside Urine Urobilinogen +/- 1mg Bedside Urine Nitrite - Negative Bedside Urine Leukocytes - Negative Esterase Imaging Data CT scan - abdomen/pelvis: Radiologist's Impression: PROCEDURE: CT ABDOMEN PELVIS W CON INDICATIONS: persistant nausea TECHNIQUE: After the administration of intravenous contrast, 5 mm thick sections acquired from the diaphragm to the symphysis. 5 mm coronal and sagittal reformats were acquired. For radiation dose reduction, the following was used: automated exposure control, adjustment of mA and/or kV according to patient size. COMPARISON: [facility], , XR CXR 2 VIEW, 03/10/2006, 12:31. FINDINGS: Image quality: Excellent. ABDOMEN: Lung bases: Lung bases are free of pneumonia but there is a rounded mass at the right posterolateral lung base measuring up to 1.7 x 2.0 cm, soft tissue in radiodensity.. Heart size is normal. Solid organs: Liver is normal in size and enhancement. Gallbladder is partially contracted. Biliary system is non dilated. Pancreas enhances normally. Spleen is normal in size and enhancement. No adrenal nodules. Kidneys demonstrate normal size and enhancement, without hydronephrosis. Peritoneum and bowel: Bowel loops demonstrate normal wall thickness and caliber. No free fluid or air. Nodes and vessels: No retroperitoneal or mesenteric adenopathy by size criteria. Aorta and inferior vena cava are normal in size. Miscellaneous: No ventral hernias. PELVIS: Genitourinary: Bladder wall thickness is normal. Miscellaneous: No inguinal hernias or adenopathy. Sigmoid diverticulosis is moderate in severity without acute diverticulitis. Bones: No suspicious bony lesions. No vertebral body compression fractures. IMPRESSION: 1. There is an unexpected finding of a soft tissue mass at the right lung base, posterolateral in position and measuring up to 2 cm in diameter. Followup chest plain films are recommended, to establish whether it an additional abnormality is potentially present elsewhere within the chest and followup by nuclear medicine PET CT scan likely is warranted for solitary pulmonary nodule workup. 2. Within the abdomen and pelvis no underlying infection or neoplasm is identified. Dictated by: Leonardo Meehan M.D. on 02/27/2019 at 10:50 ECG Data Attestation: I personally reviewed and interpreted this ECG as follows: Prior ECG tracings: not available for review Interpretation: Sinus rhythm rate 47 p.r. interval 144 QRS is [address] changes no priors to compare MDM Narrative Medical decision making narrative: Patient continues to feel nauseous despite 2 anti nausea medications however he has not had any vomiting while in the emergency department and is even tolerating oral fluids. Blood work overall is reassuring. At this time the possible gastroenteritis. This has happened to him 1 year prior and it resolved spontaneously. CT shows no acute abdominal process. However does show a 2 cm soft tissue mass mom I have called and spoken with primary care provider Dr. Stevens who head is made aware of the CT findings and will follow-up with patient. Patient also aware of soft tissue mass findings on CT. Discharge Plan Departure Patient Disposition: Home Clinical Impression: Gastroenteritis, Body mass index (BMI) of 30.0 to 30.9 in adult Discharge Date/Time: 02/27/19 11:59 Instructions: DI for Viral Gastroenteritis -- Adult Activity Restrictions/Additional Instructions: 1) You have been diagnosed with gastroenteritis 2) What to do: Drink frequent but small amounts of fluids. I recommend Gatorade or a Gatorade-like product, as it has small amounts of sugar and salts that improve fluid retention. 3) Take medications as directed Zofran 4 mg every 8 hours as needed for nausea or vomiting Phenergan 25 mg every 8 hours if needed for nausea or vomiting 4) Follow up with your primary care provider in 2-3 days 5) Return to ER if you should have any new or worsening symptoms such as, unable to hold down fluids despite use of anti-nausea medications and the small volume oral rehydration strategy. Prescriptions: New promethazine 25 mg tablet 25 mg PO Q6H PRN (Reason: nausea and vomiting) Qty: 10 RF: 0 No Action aspirin 81 mg Tablet,Delayed Release (Dr/Ec) 81 mg PO DAILY Qty: 0 RF: 0 simvastatin 20 mg tablet 20 mg PO DAILY RF: 0 lisinopril 10 mg tablet 20 mg PO BID RF: 0 omeprazole 20 mg capsule,delayed release(DR/EC) 20 mg PO DAILY RF: 0 atenolol 50 mg tablet 50 mg PO BID RF: 0 finasteride 5 mg tablet 5 mg PO DAILY RF: 0 alfuzosin 10 mg tablet extended release 24 hr 10 mg PO DAILY RF: 0 Referrals: Saw Stevens MD [Primary Care Provider] -
[2019-02-27 09:09] LABS: Add Manual Diff / Slide Review NO; Basophils Absolute Auto 0 /uL (0-100); Basophils Percent Auto 0.3 % (0-2); Eosinophils Absolute Auto 0 /uL (0-450); Eosinophils Percent Auto 0.2 % (2-4); Hematocrit 45.4 % (41-53); Hemoglobin 15.7 g/dL (13.5-17.5); Lymphocytes Absolute Auto 900 /uL (1100-4500); Mean Corpuscular HGB Conc 34.5 % (30-36); Mean Corpuscular Hemoglobin 32.8 PG (26-34); Mean Corpuscular Volume 94.9 fL (80-100); Monocytes Absolute Auto 200 /uL (0-900); Monocytes Percent Auto 1.8 % (3-14); Neutrophils Absolute Auto 8100 /uL (1500-7000); Neutrophils Percent Auto 87.7 % (50-75); Platelet Count 212 X10^3/uL (150-400); Red Blood Cell Count 4.79 X10^6/uL (4.5-5.9); Red Cell Distribution Width 12.8 % (11.6-14.8); White Blood Cell Count 9.2 X10^3/uL (4.5-11.0)
[2019-02-27] MEDS: PANTOPRAZOLE 40 MG VIAL IV (09:12)
[2019-02-27] MEDS: SODIUM CHLORIDE 0.9% 1,000 ML 1000 ML IV ×2 (09:13→10:30)
[2019-02-27] MEDS: ONDANSETRON 4 MG/2 ML INJ IV (09:13)
[2019-02-27 09:18] LABS: Alanine Aminotransferase 24 IU/L (<50); Albumin 4.3 g/dL (3.5-5.0); Albumin Globulin Ratio 1.6 (1.0-2.8); Alkaline Phosphatase 40 U/L (38-126); Aspartate Aminotransferase 25 IU/L (17-59); BUN Creatinine Ratio 18.5 (6-22); Bilirubin Total 0.7 mg/dL (0.2-1.3); Blood Urea Nitrogen 24 mg/dL (9-20); Calcium 9.2 mg/dL (8.4-10.2); Carbon Dioxide 29 mmol/L (22-32); Chloride 105 mmol/L (98-107); Estimated Glomerular Filt Rate 54.3 mL/min (>60); Globulin 2.7 g/dL (1.7-4.1); Glucose 126 mg/dL (80-110); HEMOLYSIS < 15 (0-50); Lipase 30 U/L (23-300); Potassium 4.5 mmol/L (3.4-5.1); Sodium 142 mmol/L (137-145)
[2019-02-27 09:36] LABS: Creatine Kinase 121 U/L (55-170)
[2019-02-27 09:43] LABS: Bacteria Urine None Seen
[2019-02-27 09:49] LABS: Troponin I < 0.012 ng/mL (0.01-0.034)
[2019-02-27 09:51] LABS: Creatine Kinase MB 2.46 ng/mL (<2.37)
[2019-02-27 09:53] LABS: RBC Urine 5-10/HPF (0-5/HPF); Squamous Epithelial Cell Urine None Seen (0-5/HPF); WBC Urine 1-5/HPF (0-5/HPF)
[2019-02-27 09:54] LABS: Culture Indicated Urine Cult Not Indicated; Mucus Urine 1+ (Negative)
--- NOTE | 2019-02-27 10:28 | DI.CT.S_ITS ---
PROCEDURE: CT ABDOMEN PELVIS W CON INDICATIONS: persistant nausea TECHNIQUE: After the administration of intravenous contrast, 5 mm thick sections acquired from the diaphragm to the symphysis. 5 mm coronal and sagittal reformats were acquired. For radiation dose reduction, the following was used: automated exposure control, adjustment of mA and/or kV according to patient size. COMPARISON: [facility], , XR CXR 2 VIEW, 03/10/2006, 12:31. FINDINGS: Image quality: Excellent. ABDOMEN: Lung bases: Lung bases are free of pneumonia but there is a rounded mass at the right posterolateral lung base measuring up to 1.7 x 2.0 cm, soft tissue in radiodensity.. Heart size is normal. Solid organs: Liver is normal in size and enhancement. Gallbladder is partially contracted. Biliary system is non dilated. Pancreas enhances normally. Spleen is normal in size and enhancement. No adrenal nodules. Kidneys demonstrate normal size and enhancement, without hydronephrosis. Peritoneum and bowel: Bowel loops demonstrate normal wall thickness and caliber. No free fluid or air. Nodes and vessels: No retroperitoneal or mesenteric adenopathy by size criteria. Aorta and inferior vena cava are normal in size. Miscellaneous: No ventral hernias. PELVIS: Genitourinary: Bladder wall thickness is normal. Miscellaneous: No inguinal hernias or adenopathy. Sigmoid diverticulosis is moderate in severity without acute diverticulitis. Bones: No suspicious bony lesions. No vertebral body compression fractures. IMPRESSION: 1. There is an unexpected finding of a soft tissue mass at the right lung base, posterolateral in position and measuring up to 2 cm in diameter. Followup chest plain films are recommended, to establish whether it an additional abnormality is potentially present elsewhere within the chest and followup by nuclear medicine PET CT scan likely is warranted for solitary pulmonary nodule workup. 2. Within the abdomen and pelvis no underlying infection or neoplasm is identified. Dictated by: Leonardo Meehan M.D. on 02/27/2019 at 10:50 Approved by: Leonardo Meehan M.D. on 02/27/2019 at 10:54
[2019-02-27] MEDS: METOCLOPRAMIDE 10 MG/2 ML INJ IV (10:48)
[2019-02-27] MEDS: ATENOLOL 50 MG TABLET PO (11:24)
[2019-02-27] MEDS: LISINOPRIL 20 MG TABLET PO (11:25)
== END 2019-02-27 11:59 | disposition home or self-care (01) ==
PROVIDERS: Emergency Provider Emergency Medicine; PCP Family Medicine
DX: K52.9 Noninfective gastroenteritis and colitis, unspecified (principal); Z68.30 Body mass index [BMI] 30.0-30.9, adult
CPT/HCPCS: 36415; 74177; 80053; 81003; 81015; 82550; 82553; 83690; 84484; 85025; 93005; 96361; 96374; 96375; 99285; C9113; J2405; J2765

== ENCOUNTER 2019-03-23 13:15 | Day surgery (SDC) | payer MEDICARE, OTHER, SELFPAY ==
[2019-03-23] VITALS (8 sets, daily range): BP systolic 89–127; BP diastolic 59–75; PULSE 47–55; RESP 14–20; TEMP 36–36.3; O2SAT 92–100; BMI 27.3
--- NOTE | 2019-03-23 | PATH_ITS ---
[facility] Accession Number: [id number] . 01 Material submitted: . PART A: gastrointestinal site - GASTRIC POLYPS PART B: esophagus, E-G Junction - GE JUNCTION BIOPSY . 02 Diagnosis: A. Gastric Polyp, Biopsy: Fundic gland polyp. No evidence of Helicobacter organisms on H/E stain. Negative for intestinal metaplasia. Negative for dysplasia and malignancy. . B. Gastroesophageal Junction, Biopsy: Squamocolumnar junctional mucosa with focal specialized intestinal metaplasia; please see comment. Negative for dysplasia or malignancy. MRV 03/27/2019 1103 Local . 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 . 02 Electronically signed: . Paresh Dao MD, PhD, Pathologist NPI- [id number] . 01 Gross description: . Part A: GASTRIC POLYPS: Received in formalin is 1 fragment(s) of pierson, soft tissue measuring 0.2 x 0.2 x 0.2 cm submitted entirely in 1 cassette(s) Part B: GE JUNCTION BIOPSY: Received in formalin are 2 fragment(s) of pierson, soft tissue measuring 0.5 x 0.3 x 0.1 cm to 0.3 x 0.2 x 0.1 cm submitted entirely in 1 cassette(s) /QBJ 03/24/2019 0524 Local . 02 Pathologist provided ICD-10: K31.7, K22.70 . 02 CPT . 668517, [id number] Performed at: 01 [facility] [address], [place], [place] [id number] MD Thanh Colvin MD Phone: [phone] Performed at: 02 [facility] [id number] [place] [id number] MD Karis Dunlap MD Phone: [phone]
[2019-03-23] MEDS: SODIUM CHLORIDE 0.9% 1,000 ML 200 ML IV (13:59)
--- NOTE | 2019-03-23 15:18 | PM.PREOP ---
Pre-operative Note Interval Note History & Physical reviewed/Exam performed by Physician: Yes Changes to H&P: No ASA Class (for procedural sedation): II
[2019-03-23] MEDS: fentaNYL 250 MCG/5 ML INJ IV (16:05)
[2019-03-23] MEDS: MIDAZOLAM 5 MG/5 ML VIAL IV (16:06)
[2019-03-23] MEDS: LIDOCAINE 4% SOLN 50 ML 20 ML TOP (16:07)
--- NOTE | 2019-03-23 16:07 | PM.OP.ENDO ---
Operative Date/Time/Diagnoses Date of procedure: 03/23/19 Time of procedure: 16:07 Pre-op diagnosis: Epigastric pain Post-op diagnosis: same Procedure & Clinicians Study performed: Esophagoduodenoscopy Same procedure as scheduled: Yes Indications: 74-year-old male with worsening epigastric pain and nausea presents for EGD Procedure Notes SCOAP/Timeout: Performed Procedure in detail: Patient placed in left lateral decubitus position. Time out was performed. Procedural sedation was administered with Versed and Fentanyl. A bite block was placed. the scope was inserted into the mouth and advanced through the esophagus and into the stomach. The pylorus was intubated and the duodenum was normal. The scope was retroflexed within the stomach and there was a small hiatal hernia. The stomach was notable for numerous gastric polyps of varying sizes from fundus to the pyloric channel. Random gastric polyp biopsy was performed hemostasis was achieved. The scope was withdrawn into the esophagus the Z line was seen at 35 cm from the incisions. There was no pope's esophagitis or masses or strictures. 4 random biopsies of the Z line were taken with forceps. Stomach was desufflated and scope removed. Patient tolerated procedure well. Sedation minutes: 10 Findings: polyp Specimen(s): other (The GE junction biopsy, gastric polyp biopsy) Complications: none Impression: Gastric polyps Post-procedure Recommendations: Other recommendation (Will refer to Gastroenterology in regards to the gastric polyps) Disposition: same day surgery
== END 2019-03-23 17:14 | disposition home or self-care (01) ==
PROVIDERS: PCP Family Medicine; Referring Provider Surgery; Visit Provider Surgery
PROC: 0DJ08ZZ Inspection of Upper Intestinal Tract, Via Natural or Artificial Opening Endoscopic (ICD-10-PCS; CPT 43235; principal; 2019-03-23 15:15)
DX: K22.70 Barrett's esophagus without dysplasia (principal); K44.9 Diaphragmatic hernia without obstruction or gangrene; K31.7 Polyp of stomach and duodenum
CPT/HCPCS: 43239; 99152; J2250; J3010

== ENCOUNTER → 2020-01-18 08:08 | Outpatient (CLI) | payer MEDICARE, OTHER, SELFPAY ==
[2020-01-18 08:39] LABS: Add Manual Diff / Slide Review NO; Basophils Absolute Auto 0 /uL (0-100); Basophils Percent Auto 0.4 % (0-2); Eosinophils Absolute Auto 100 /uL (0-450); Eosinophils Percent Auto 1.8 % (2-4); Hematocrit 45.2 % (41-53); Hemoglobin 15.6 g/dL (13.5-17.5); Lymphocytes Absolute Auto 2000 /uL (1100-4500); Mean Corpuscular HGB Conc 34.6 % (30-36); Mean Corpuscular Hemoglobin 32.6 PG (26-34); Mean Corpuscular Volume 94.2 fL (80-100); Monocytes Absolute Auto 600 /uL (0-900); Monocytes Percent Auto 7.9 % (3-14); Neutrophils Absolute Auto 4500 /uL (1500-7000); Neutrophils Percent Auto 61.9 % (50-75); Platelet Count 216 X10^3/uL (150-400); Red Cell Distribution Width 13.1 % (11.6-14.8); White Blood Cell Count 7.3 X10^3/uL (4.5-11.0)
[2020-01-18 09:13] LABS: Alanine Aminotransferase 26 IU/L (<50); Albumin 4.1 g/dL (3.5-5.0); Albumin Globulin Ratio 1.5 (1.0-2.8); Alkaline Phosphatase 43 U/L (38-126); Aspartate Aminotransferase 25 IU/L (17-59); BUN Creatinine Ratio 19.1 (6-22); Bilirubin Total 0.7 mg/dL (0.2-1.3); Blood Urea Nitrogen 21 mg/dL (9-20); Calcium 9.6 mg/dL (8.4-10.2); Carbon Dioxide 30 mmol/L (22-32); Chloride 104 mmol/L (98-107); Cholesterol 164 mg/dL (140-199); Estimated Glomerular Filt Rate > 60.0 mL/min (>60); Globulin 2.7 g/dL (1.7-4.1); Glucose 117 mg/dL (80-110); HDL Cholesterol 47 mg/dL (40-60); HEMOLYSIS < 15 (0-50); LDL Cholesterol Calculated 103 mg/dL (<100); Potassium 5.2 mmol/L (3.4-5.1); Sodium 138 mmol/L (137-145); Total Protein 6.8 g/dL (6.3-8.2); Triglycerides 69 mg/dL (35-150)
[2020-01-18 09:35] LABS: Prostate Specific Antigen Scrn 2.78 ng/mL (0.1-4.0)
== END ==
PROVIDERS: PCP Family Medicine; Referring Provider Family Medicine; Visit Provider Family Medicine
DX: E78.2 Mixed hyperlipidemia (principal); N40.0 Benign prostatic hyperplasia without lower urinary tract symptoms; Z12.5 Encounter for screening for malignant neoplasm of prostate
CPT/HCPCS: 36415; 80053; 80061; 85025; G0103

== ENCOUNTER → 2022-10-26 09:56 | Outpatient (CLI) | payer MEDICARE, OTHER, SELFPAY ==
[2022-10-26 10:55] LABS: Add Manual Diff / Slide Review NO; Basophils Absolute Auto 0 /uL (0-100); Basophils Percent Auto 0.3 % (0-2); Eosinophils Absolute Auto 100 /uL (0-450); Eosinophils Percent Auto 1.5 % (2-4); Hematocrit 42.9 % (41-53); Hemoglobin 15.1 g/dL (13.5-17.5); Lymphocytes Absolute Auto 1600 /uL (1100-4500); Lymphocytes Percent Auto 23.8 % (25-40); Mean Corpuscular HGB Conc 35.2 % (30-36); Mean Corpuscular Hemoglobin 33.1 PG (26-34); Mean Corpuscular Volume 94.2 fL (80-100); Monocytes Absolute Auto 400 /uL (0-900); Monocytes Percent Auto 5.2 % (3-14); Neutrophils Absolute Auto 4700 /uL (1500-7000); Neutrophils Percent Auto 69.2 % (50-75); Platelet Count 220 X10^3/uL (150-400); Red Blood Cell Count 4.56 X10^6/uL (4.5-5.9); Red Cell Distribution Width 13.2 % (11.6-14.8); White Blood Cell Count 6.8 X10^3/uL (4.5-11.0)
[2022-10-26 11:17] LABS: Alanine Aminotransferase 27 IU/L (<50); Albumin 4.1 g/dL (3.5-5.0); Albumin Globulin Ratio 1.5 (1.0-2.8); Alkaline Phosphatase 41 U/L (38-126); Aspartate Aminotransferase 26 IU/L (17-59); BUN Creatinine Ratio 15.5 (6-22); Bilirubin Total 0.5 mg/dL (0.2-1.3); Blood Urea Nitrogen 17 mg/dL (9-20); Calcium 8.7 mg/dL (8.4-10.2); Carbon Dioxide 24 mmol/L (22-32); Chloride 105 mmol/L (98-107); Cholesterol 176 mg/dL (140-199); Estimated Glomerular Filt Rate > 60 mL/min (>60); Globulin 2.7 g/dL (1.7-4.1); Glucose 102 mg/dL (80-110); HDL Cholesterol 43 mg/dL (40-60); HEMOLYSIS < 15 (0-50); LDL Cholesterol Calculated 115 mg/dL (<100); Lipase 46 U/L (23-300); Potassium 4.7 mmol/L (3.4-5.1); Sodium 136 mmol/L (137-145); Total Protein 6.8 g/dL (6.3-8.2); Triglycerides 91 mg/dL (35-150)
[2022-10-26 11:20] LABS: Appearance Urine UA SL CLOUDY; Bilirubin Urine UA NEGATIVE (NEGATIVE); Color Urine UA YELLOW; Glucose Urine UA NEGATIVE (Negative); Ketones Urine UA NEGATIVE (NEGATIVE); Leukocyte Esterase Urine UA 1+ (NEGATIVE); Nitrite Urine UA POSITIVE (Negative); Occult Blood Urine UA 1+ (Negative); Protein Urine UA NEGATIVE (Negative); Urobilinogen Urine UA 0.2 E.U./dL (0.2); pH Urine UA 5.5 (4.5-8.0)
[2022-10-26 11:28] LABS: Bacteria Urine Moderate (10-30); Culture Indicated Urine Specimen Cultured; RBC Urine 1-5/HPF (0-5/HPF); Squamous Epithelial Cell Urine 0-1 /HPF (0-5/HPF); WBC Urine 5-10/HPF (0-5/HPF)
[2022-10-26 11:47] LABS: Prostate Specific Antigen Scrn 3.78 ng/mL (0.1-4.0)
[2022-10-26 11:53] LABS: TSH w/ Reflex to FT4 1.62 uIU/mL (0.47-4.68)
[2022-10-26 11:56] LABS: Creatinine Urine Random 78.1 mg/dL
[2022-10-26 12:03] LABS: Microalbumi Creatinin Ratio Ur 7.6 ug/mg CR (<30); Microalbumin Urine Random 0.6 mg/dL (0-1.6)
== END ==
PROVIDERS: PCP Family Medicine; Referring Provider Family Medicine; Visit Provider Family Medicine
DX: E78.2 Mixed hyperlipidemia (principal); I10 Essential (primary) hypertension; Z12.5 Encounter for screening for malignant neoplasm of prostate; N40.0 Benign prostatic hyperplasia without lower urinary tract symptoms; Z68.30 Body mass index [BMI] 30.0-30.9, adult
CPT/HCPCS: 36415; 80053; 80061; 81001; 82043; 82570; 83690; 84443; 85025; 87086; G0103

== ENCOUNTER 2022-11-10 09:56 | Day surgery (SDC) | payer MEDICARE, OTHER, SELFPAY ==
--- NOTE | 2022-11-10 | PATH_ITS ---
[facility] Accession Number: [id number] No. of containers..02 Tissue . 01 Material submitted: . PART A: esophagus, E-G Junction - GE JUNCTION PART B: gastrointestinal site - GASTRIC . 01 Diagnosis: A- GE JUNCTION, BIOPSY: - COLUMNAR EPITHELIUM WITH FOCAL INTESTINAL METAPLASIA, (SEE COMMENT) - SQUAMOUS EPITHELIUM, NEGATIVE FOR INCREASED INTRAEPITHELIAL EOSINOPHILS. - NEGATIVE FOR DYSPLASIA AND NEGATIVE FOR MALIGNANCY --- B- STOMACH, BIOPSY: - GASTRIC MUCOSA, WITH FOCAL HISTOLOGIC CHANGES SUGGESTIVE OF PROTON-PUMP INHIBITOR LIKE EFFECT. - NO H. PYLORI LIKE ORGANISMS IDENTIFIED (ON THE H/E-STAINED SECTIONS). - NEGATIVE FOR GASTRITIS, INTESTINAL METAPLASIA, DYSPLASIA OR MALIGNANCY. 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 TXN 11/13/2022 1611 Local . 01 Electronically signed: . Gabrielle Dinh MD, Pathologist NPI- [id number] . 01 Gross description: . GE JUNCTION: Received in formalin is 1 fragment(s) of pierson, soft tissue measuring 0.5 x 0.4 x 0.3 cm submitted entirely in 1 cassette(s) /AAY GASTRIC: Received in formalin is 2 fragment(s) of pierson, soft tissue measuring 0.4 x 0.3 x 0.2 cm and 0.2 x 0.2 x 0.1 cm submitted entirely in 1 cassette /AAY 11/12/2022 0548 Local . 01 Pathologist provided ICD-10: K22.70 . 01 CPT . 542216, 929100 Specimen Comment: A courtesy copy of this report has been sent to [phone] Performed at: 01 [facility] [address] [place] [address], [place] [id number] MD Thanh Colvin MD Phone: [phone]
[2022-11-10 10:16] VITALS: BMI 28.1
[2022-11-10 10:22] VITALS: BP 139/77; PULSE 60; RESP 16; TEMP 36.1; O2SAT 97
[2022-11-10] MEDS: LACTATED RINGERS 1,000 ML 42 ML IV (10:40)
--- NOTE | 2022-11-10 11:31 | PM.PREOP ---
Pre-operative Note Interval Note History & Physical reviewed/Exam performed by Physician: Yes Changes to H&P: No
--- NOTE | 2022-11-10 11:53 | P.OP.EGD_ITS ---
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 Surgeon: Emre Chatman Procedure Notes Procedure in detail: The history and physical was performed/updated and the patient is ASA class is 2. The procedure was discussed in detail with the patient. Potential risks complications including infection, bleeding, missed diagnosis, perforation, need for surgery, and were explained. Their questions were answered and informed consent was obtained. Patient placed in left lateral decubitus position. Time out was performed. Proc edural sedation was administered by Anesthesia. A bite block was placed. the scope was inserted into the mouth and advanced through the esophagus and into the stomach. Stomach was notable for mild diffuse gastritis. There were small flecks of clot within the body of the stomach. Biopsy of the stomach was performed with forceps.. The pylorus was intubated and the duodenum was normal to the 2nd portion. The scope was retroflexed within the stomach, no significant hiatal hernia.. The scope was withdrawn into the esophagus the Z line was seen at 40 cm from the incisions. There was no clint Husain's esophagitis, esophageal masses or strictures. Biopsy of the GE junction was performed with forceps. Stomach was desufflated and scope removed. The patient tolerated the procedure well and will be discharged when they meet criteria. Findings: gastritis Specimen(s): other (Gastric, GE junction,) Impression: Gastritis Post-procedure Plan for aftercare: Increase omeprazole 20 mg daily to twice daily Disposition: same day surgery
[2022-11-10 11:57] VITALS: BP 112/67; PULSE 57; RESP 16; TEMP 36.7; O2SAT 98
[2022-11-10 12:00] VITALS: BP 123/75; PULSE 54; RESP 18; O2SAT 100
[2022-11-10 12:07] VITALS: BP 133/72; PULSE 56; RESP 16; O2SAT 99
[2022-11-10 12:11] VITALS: BP 131/75; PULSE 54; RESP 16; TEMP 36.7; O2SAT 98
== END 2022-11-10 12:30 | disposition home or self-care (01) ==
PROVIDERS: PCP Family Medicine; Referring Provider Surgery; Visit Provider Surgery
PROC: 0DJ08ZZ Inspection of Upper Intestinal Tract, Via Natural or Artificial Opening Endoscopic (ICD-10-PCS; CPT 43235; principal; 2022-11-10 11:00)
DX: Z87.19 Personal history of other diseases of the digestive system (principal); R11.0 Nausea; K22.70 Barrett's esophagus without dysplasia
CPT/HCPCS: 43239

== ENCOUNTER → 2022-11-18 09:38 | Outpatient (CLI) | payer MEDICARE, OTHER, SELFPAY ==
[2022-11-18 11:05] LABS: Bilirubin Urine UA NEGATIVE (NEGATIVE); Color Urine UA YELLOW; Glucose Urine UA NEGATIVE (Negative); Ketones Urine UA NEGATIVE (NEGATIVE); Leukocyte Esterase Urine UA 2+ (NEGATIVE); Nitrite Urine UA POSITIVE (Negative); Occult Blood Urine UA 2+ (Negative); Protein Urine UA NEGATIVE (Negative); Specific Gravity Urine UA 1.025 (1.000-1.035); Urobilinogen Urine UA 0.2 E.U./dL (0.2)
[2022-11-18 11:06] LABS: Appearance Urine UA Cloudy
[2022-11-18 11:15] LABS: Amorphous Sediment Urine 1+; Bacteria Urine Many (>30); Culture Indicated Urine Specimen Cultured; RBC Urine 0-1/HPF (0-5/HPF); Squamous Epithelial Cell Urine 1-5 /HPF (0-5/HPF); WBC Urine 30-100/HPF (0-5/HPF)
== END ==
PROVIDERS: PCP Family Medicine; Referring Provider Family Medicine; Visit Provider Family Medicine
DX: R31.29 Other microscopic hematuria (principal)
CPT/HCPCS: 81001; 87086

== ENCOUNTER → 2023-12-27 06:46 | Outpatient (CLI) | payer MEDICARE, OTHER, SELFPAY ==
--- NOTE | 2023-12-27 06:48 | DI.US.S_ITS ---
PROCEDURE: US ART LOW EXT BILAT W/KIAH COMPARISON: None. INDICATIONS: Bilateral lower extremity discomfort with activity. FINDINGS: Right lower extremity: Common femoral artery: 120 cm/sec; triphasic waveform Profunda femoris artery: 117 cm/sec; biphasic waveform Proximal superficial femoral artery: 91 cm/sec; triphasic waveform Mid superficial femoral artery: 92 cm/sec; triphasic waveform Distal superficial femoral artery: 77 cm/sec; triphasic waveform Popliteal artery: 90 cm/sec; triphasic waveform Posterior tibial artery: 29 cm/sec; monophasic waveform Anterior tibial artery/dorsalis pedis artery: 18 cm/sec; monophasic waveform Grayscale findings: Heavily calcified plaque involving the right common femoral artery and proximal right SFA. Multifocal calcified plaque throughout the SFA and popliteal artery. Multifocal calcified plaque throughout the tibial arteries. KIAH: 1.04 Left lower extremity: Common femoral artery: 79 cm/sec; tri- to biphasic waveform Profunda femoris artery: 196 cm/sec; biphasic waveform Proximal superficial femoral artery: Occluded Mid superficial femoral artery: Occluded Distal superficial femoral artery: 64 cm/sec; monophasic waveform Popliteal artery: 22 cm/sec; monophasic waveform Posterior tibial artery: 19 cm/sec; monophasic waveform Anterior tibial artery/dorsalis pedis artery: 23 cm/sec; monophasic waveform Grayscale findings: Multifocal heavily calcified plaque throughout the left common femoral artery. Left SFA is occluded from just beyond its origin throughout the proximal to mid segment with distal reconstitution of the distal segment. Multifocal heavily calcified plaque throughout the popliteal artery. Multifocal calcified plaque throughout the tibial arteries. KIAH: 1.36 IMPRESSION: 1. Long segment occlusion of left SFA from just beyond its origin throughout the proximal to mid segment with distal reconstitution of the distal SFA. 2. Decreased velocities and monophasic waveforms throughout tibial arteries of right lower extremity suggestive of diffuse small vessel disease. 3. Likely false elevation of ABIs due to presence of calcification. Dictated by: Arie Baumann M.D. on 12/27/2023 at 10:32 Approved by: Arie Baumann M.D. on 12/27/2023 at 10:46
--- NOTE | 2023-12-27 06:48 | DI.CT.S_ITS ---
PROCEDURE: CT LUNG LOW DOSE SCREENING INDICATIONS: smoking hx >30 pack years TECHNIQUE: Noncontrast 2.0-2.5 mm thick sections acquired from the pulmonary apices to the posterior costophrenic angles. 7 mm thick axial MIP, and 5 mm coronal and sagittal reformats were then acquired. For radiation dose reduction, the following was used: automated exposure control, adjustment of mA and/or kV according to patient size. COMPARISON: [facility], CT, CT ABDOMEN PELVIS W CON, 02/27/2019, 10:27. FINDINGS: Image quality: Diagnostic. Lungs and Pleura: 2 cm nodule with a central coarse calcification within the right lower lobe which is unchanged in size compared to previous CT of the abdomen pelvis from 02/27/2019. Interval increase in degree of calcification and nodule did not demonstrate increased FDG uptake on the previous PET-CT of 03/22/2019 compatible with a benign nodule. No new pulmonary nodules or masses. No focal airspace opacity or consolidation. No evidence of pneumothorax or pleural effusion. Lower Neck: No enlarged lymph nodes. Thyroid: No thyroid nodules which require sonographic follow up, per consensus guidelines. Axillae: No enlarged lymph nodes. Chest Wall: Unremarkable. Bones: Unremarkable. Multilevel degenerative changes throughout the thoracic spine. Heart: Heart size is normal. Trace loculated pleural fluid within the anterior pericardium. Thoracic Vessels: The aorta and pulmonary arteries demonstrate normal size. Mediastinum and Nimisha: No enlarged lymph nodes. Esophagus: No wall thickening. No hiatal hernia. Upper Abdomen: Visualized upper abdomen solid organs and bowel loops appear normal. IMPRESSION: No suspicious pulmonary nodules. LUNG-RADS 1; continued annual screening, if eligible. Clinically Significant Non-pulmonary Findings: None. Dictated by: Arie Baumann M.D. on 12/27/2023 at 8:46 Approved by: Arie Baumann M.D. on 12/27/2023 at 8:57
[2023-12-27 09:06] LABS: Add Manual Diff / Slide Review NO; Basophils Absolute Auto 0 /uL (0-100); Basophils Percent Auto 0.3 % (0-2); Eosinophils Absolute Auto 200 /uL (0-450); Eosinophils Percent Auto 2.5 % (2-4); Hematocrit 48.9 % (41-53); Hemoglobin 16.7 g/dL (13.5-17.5); Lymphocytes Absolute Auto 2000 /uL (1100-4500); Lymphocytes Percent Auto 28.2 % (25-40); Mean Corpuscular HGB Conc 34.2 % (30-36); Mean Corpuscular Volume 96.5 fL (80-100); Monocytes Absolute Auto 400 /uL (0-900); Monocytes Percent Auto 5.9 % (3-14); Neutrophils Absolute Auto 4500 /uL (1500-7000); Neutrophils Percent Auto 63.1 % (50-75); Platelet Count 243 X10^3/uL (150-400); Red Blood Cell Count 5.07 X10^6/uL (4.5-5.9); Red Cell Distribution Width 13.1 % (11.6-14.8); White Blood Cell Count 7.2 X10^3/uL (4.5-11.0)
[2023-12-27 09:26] LABS: Alanine Aminotransferase 28 IU/L (<50); Albumin 4.4 g/dL (3.5-5.0); Albumin Globulin Ratio 1.7 (1.0-2.8); Alkaline Phosphatase 47 U/L (38-126); Aspartate Aminotransferase 26 IU/L (17-59); BUN Creatinine Ratio 22.2 (6-22); Bilirubin Total 0.8 mg/dL (0.2-1.3); Blood Urea Nitrogen 28 mg/dL (9-20); Calcium 9.5 mg/dL (8.4-10.2); Carbon Dioxide 25 mmol/L (22-32); Chloride 108 mmol/L (98-107); Cholesterol 196 mg/dL (140-199); Estimated Glomerular Filt Rate 59 mL/min (>60); Globulin 2.6 g/dL (1.7-4.1); Glucose 97 mg/dL (80-110); HDL Cholesterol 42 mg/dL (40-60); HEMOLYSIS < 15 (0-50); LDL Cholesterol Calculated 127 mg/dL (<100); Sodium 140 mmol/L (137-145); Triglycerides 137 mg/dL (35-150)
[2023-12-27 09:27] LABS: Potassium 5.5 mmol/L (3.4-5.1)
[2023-12-27 09:54] LABS: Prostate Specific Antigen Scrn 2.42 ng/mL (0.1-4.0); TSH w/ Reflex to FT4 2.11 uIU/mL (0.47-4.68)
[2023-12-27 10:08] LABS: Creatinine Urine Random 101.79 mg/dL
[2023-12-27 10:13] LABS: Microalbumin Urine Random < 0.6 mg/dL (0-1.6)
== END ==
PROVIDERS: PCP Family Medicine; Referring Provider Family Medicine; Visit Provider Family Medicine
DX: F17.210 Nicotine dependence, cigarettes, uncomplicated (principal); I77.1 Stricture of artery; I10 Essential (primary) hypertension; Z12.2 Encounter for screening for malignant neoplasm of respiratory organs; I73.9 Peripheral vascular disease, unspecified; Z12.5 Encounter for screening for malignant neoplasm of prostate; K22.70 Barrett's esophagus without dysplasia; E78.2 Mixed hyperlipidemia
CPT/HCPCS: 36415; 71271; 80053; 80061; 82043; 82570; 84443; 85025; 93922; 93925; G0103

== ENCOUNTER → 2024-01-03 09:53 | Outpatient (CLI) | payer MEDICARE, OTHER, SELFPAY ==
[2024-01-03 10:47] LABS: Alanine Aminotransferase 33 IU/L (<50); Albumin 4.5 g/dL (3.5-5.0); Albumin Globulin Ratio 1.8 (1.0-2.8); Alkaline Phosphatase 49 U/L (38-126); Aspartate Aminotransferase 32 IU/L (17-59); BUN Creatinine Ratio 18.1 (6-22); Bilirubin Total 0.8 mg/dL (0.2-1.3); Blood Urea Nitrogen 23 mg/dL (9-20); Calcium 9.8 mg/dL (8.4-10.2); Carbon Dioxide 26 mmol/L (22-32); Chloride 104 mmol/L (98-107); Estimated Glomerular Filt Rate 59 mL/min (>60); Globulin 2.5 g/dL (1.7-4.1); Glucose 100 mg/dL (80-110); HEMOLYSIS < 15 (0-50); Potassium 5.1 mmol/L (3.4-5.1); Sodium 137 mmol/L (137-145)
== END ==
PROVIDERS: PCP Family Medicine; Referring Provider Family Medicine; Visit Provider Family Medicine
DX: I10 Essential (primary) hypertension (principal); E87.5 Hyperkalemia; E78.2 Mixed hyperlipidemia; K22.70 Barrett's esophagus without dysplasia; I73.9 Peripheral vascular disease, unspecified
CPT/HCPCS: 36415; 80053

== ENCOUNTER → 2024-12-08 08:13 | Outpatient (CLI) | payer MEDICARE, OTHER, SELFPAY ==
--- NOTE | 2024-12-08 08:15 | DI.CT.S_ITS ---
PROCEDURE: CT LUNG LOW DOSE SCREENING INDICATIONS: smoking hx and persistent smoking TECHNIQUE: Noncontrast 2.0-2.5 mm thick sections acquired from the pulmonary apices to the posterior costophrenic angles. 7 mm thick axial MIP, and 5 mm coronal and sagittal reformats were then acquired. For radiation dose reduction, the following was used: automated exposure control, adjustment of mA and/or kV according to patient size. COMPARISON: [facility], CT, CT LUNG LOW DOSE SCREENING, 12/27/2023, 6:55. FINDINGS: Image quality: Diagnostic. Lower Neck: No enlarged lymph nodes. Thyroid: No thyroid nodules which require sonographic follow up, per consensus guidelines. Axillae: No enlarged lymph nodes. Chest Wall: Unremarkable. Bones: Degenerative changes of the thoracic spine with exaggerated thoracic kyphosis. Lungs and Pleura: No pneumothorax or pleural effusions. No consolidation or suspicious nodules. Stable size of 2 cm nodule with central coarse calcification in the right lower lobe, unchanged since CT abdomen pelvis dated 02/27/2019, as well as no hypermetabolic activity on prior PET-CT dated 03/22/2019, compatible with benignity. Mild lingular and left basilar atelectasis. Heart: Severe 3 vessel coronary artery calcifications. Heart size is normal. No pericardial effusion. Thoracic Vessels: The aorta and pulmonary arteries demonstrate normal size. Mediastinum and Nimisha: No enlarged lymph nodes. Esophagus: No wall thickening. No hiatal hernia. Upper Abdomen: Visualized upper abdomen solid organs and bowel loops appear normal. IMPRESSION: No suspicious pulmonary nodules. LUNG-RADS 2; continued annual screening, if eligible. Clinically Significant Non-pulmonary Findings: Severe three-vessel coronary artery calcifications. Dictated by: Jovanni Diaz M.D. on 12/10/2024 at 13:59 Approved by: Jovanni Diaz M.D. on 12/10/2024 at 14:00
== END ==
LOC: CT 08:14
PROVIDERS: PCP Family Medicine; Referring Provider Family Medicine; Visit Provider Family Medicine
DX: Z12.2 Encounter for screening for malignant neoplasm of respiratory organs (principal); F17.210 Nicotine dependence, cigarettes, uncomplicated; R91.8 Other nonspecific abnormal finding of lung field; I25.10 Atherosclerotic heart disease of native coronary artery without angina pectoris; E78.2 Mixed hyperlipidemia; I10 Essential (primary) hypertension; R31.29 Other microscopic hematuria; R97.20 Elevated prostate specific antigen [PSA]; K22.70 Barrett's esophagus without dysplasia; I73.9 Peripheral vascular disease, unspecified
CPT/HCPCS: 71271

== ENCOUNTER → 2024-12-21 13:49 | Outpatient (CLI) | payer MEDICARE, OTHER, SELFPAY ==
[2024-12-21 14:24] LABS: Add Manual Diff / Slide Review NO; Hematocrit 45.1 % (41-53); Hemoglobin 15.5 g/dL (13.5-17.5); Lymphocytes Absolute Auto 1800 /uL (1100-4500); Mean Corpuscular HGB Conc 34.3 % (30-36); Mean Corpuscular Hemoglobin 32.6 PG (26-34); Mean Corpuscular Volume 95.1 fL (80-100); Platelet Count 214 X10^3/uL (150-400)
[2024-12-21 14:50] LABS: Alanine Aminotransferase 28 IU/L (<50); Albumin 4.2 g/dL (3.5-5.0); Albumin Globulin Ratio 1.7 (1.0-2.8); Alkaline Phosphatase 50 U/L (38-126); Blood Urea Nitrogen 31 mg/dL (9-20); Calcium 9.3 mg/dL (8.4-10.2); Carbon Dioxide 22 mmol/L (22-32); Chloride 106 mmol/L (98-107); Cholesterol 175 mg/dL (140-199); Estimated Glomerular Filt Rate 57 mL/min (>60); Globulin 2.5 g/dL (1.7-4.1); Glucose 93 mg/dL (70-99); HDL Cholesterol 52 mg/dL (40-60); HEMOLYSIS 23 (0-50); Potassium 4.9 mmol/L (3.4-5.1); Sodium 136 mmol/L (137-145); Total Protein 6.7 g/dL (6.3-8.2); Triglycerides 179 mg/dL (35-150)
[2024-12-21 15:18] LABS: TSH w/ Reflex to FT4 1.31 uIU/mL (0.47-4.68)
[2024-12-24 07:36] LABS: Calcium 9.3 mg/dL (8.6-10.2); Parathyroid Hormone, Intact 46 pg/mL (15-65)
== END ==
PROVIDERS: PCP Family Medicine; Referring Provider Family Medicine; Visit Provider Family Medicine
DX: Z12.5 Encounter for screening for malignant neoplasm of prostate (principal); F17.210 Nicotine dependence, cigarettes, uncomplicated; E78.2 Mixed hyperlipidemia; I10 Essential (primary) hypertension; R31.29 Other microscopic hematuria; R97.20 Elevated prostate specific antigen [PSA]; K22.70 Barrett's esophagus without dysplasia; I73.9 Peripheral vascular disease, unspecified; R91.8 Other nonspecific abnormal finding of lung field
CPT/HCPCS: 36415; 80053; 80061; 82310; 83970; 84443; 85025; G0103

== ENCOUNTER → 2025-01-24 16:48 | Outpatient (CLI) | payer MEDICARE, OTHER, SELFPAY ==
[2025-01-24 18:08] LABS: Add Manual Diff / Slide Review NO; Hematocrit 46.0 % (41-53); Hemoglobin 16.1 g/dL (13.5-17.5); Lymphocytes Absolute Auto 2300 /uL (1100-4500); Mean Corpuscular HGB Conc 35.0 % (30-36); Mean Corpuscular Hemoglobin 32.6 PG (26-34); Mean Corpuscular Volume 93.0 fL (80-100); Platelet Count 284 X10^3/uL (150-400)
[2025-01-24 18:32] LABS: Alanine Aminotransferase 17 IU/L (<50); Alkaline Phosphatase 55 U/L (38-126); Blood Urea Nitrogen 20 mg/dL (9-20); Calcium 9.0 mg/dL (8.4-10.2); Chloride 99 mmol/L (98-107); Estimated Glomerular Filt Rate > 60 mL/min (>60); Glucose 76 mg/dL (70-99); HEMOLYSIS < 15 (0-50); Lipase 39 U/L (23-300); Potassium 4.2 mmol/L (3.4-5.1); Sodium 137 mmol/L (137-145); Total Protein 6.9 g/dL (6.3-8.2)
[2025-01-24 18:33] LABS: Albumin 4.3 g/dL (3.5-5.0); Albumin Globulin Ratio 1.7 (1.0-2.8); Carbon Dioxide 25 mmol/L (22-32); Globulin 2.6 g/dL (1.7-4.1)
== END ==
PROVIDERS: PCP Family Medicine; Referring Provider Family Medicine; Visit Provider Physician Assistant
DX: R11.10 Vomiting, unspecified (principal)
CPT/HCPCS: 36415; 80053; 83690; 85025